=== PATIENT | female | born 1950 | race Caucasian/White ===

== ENCOUNTER 2017-12-02 09:40 | Emergency (ER) | payer MEDICARE, OTHER ==
[~2017-12-02] VITALS: Ht 162.6 cm; Wt 70.3 kg
--- NOTE | 2017-12-02 09:50 | NUR ---
A/O X4, c/o rt foot laceration s/p ceramic platter fell to her foot last night. tetanus shot is not up to date. no active bleeding on the wound. nad. vss rr even and unlabored. pending er md kruse
--- NOTE | 2017-12-02 10:00 | NUR ---
Wound care done 10:00am.
[2017-12-02] MEDS ORDERED: TDAP [DIPH/PERTUSSIS/TET] 0.5 ML VIAL IM ONE ×2 (10:30→10:32)
--- NOTE | 2017-12-02 10:47 | NUR ---
Patient discharged to home in stable condition. Written and verbal after care instructions given. Patient verbalizes understanding of instruction.
[2017-12-02 10:49] VITALS: BP 150/85
== END 2017-12-02 10:49 | disposition home or self-care (01) ==
LOC: ER 09:42
DX: S91.311A Laceration without foreign body, right foot, initial encounter (principal); S91.312A Laceration without foreign body, left foot, initial encounter; J45.909 Unspecified asthma, uncomplicated; F10.10 Alcohol abuse, uncomplicated; Z60.2 Problems related to living alone; Z90.89 Acquired absence of other organs; W20.8XXA Other cause of strike by thrown, projected or falling object, initial encounter; Y93.89 Activity, other specified; Y92.89 Other specified places as the place of occurrence of the external cause; Y99.8 Other external cause status
CPT/HCPCS: 90715; A4606; A6402; Z7610